=== PATIENT | female | born 1985 | race Caucasian/White ===

== ENCOUNTER → 2020-05-19 13:00 | Observation (INO) ==
[~2020-05-19 13:00] MED LIST: Aspirin Enteric Coated 81 MG Tablet PO SCH; Prenatal Vit/FA 1 EACH TABLET PO SCH
== END | disposition home or self-care (01) ==
LOC: 1NENULAB
PROVIDERS: ADMIT Obstetrics & Gynecology; ATTEND Obstetrics & Gynecology

== ENCOUNTER 2020-06-25 11:07 | Inpatient (IN) ==
[2020-06-25] MEDS ORDERED: Naloxone 0.4 MG/ML INJ IVP PRN (11:21)
[2020-06-25] MEDS ORDERED: Famotidine 20 MG/2 ML VIAL IVP PRN (11:21)
[2020-06-25] MEDS ORDERED: Lidocaine 1% 20 ML MDV INFILT PRN (11:21)
[2020-06-25] MEDS ORDERED: Ondansetron 4 MG/2 ML VIAL IVP PRN (11:21)
[2020-06-25] MEDS ORDERED: *HR* FentaNYL (PF) 100 MCG/2 ML VIAL IVP PRN (11:21)
[2020-06-25] MEDS ORDERED: Metoclopramide 10 MG/2 ML VIAL IVP PRN (11:21)
[2020-06-25] MEDS ORDERED: Ringers Solution, Lactated 1,000 ML ONE (11:56)
[2020-06-25 12:04] LABS: Basophils % 0.1 %; Eosinophils # 0.1 K/mcL (0.0-0.6); Eosinophils % 0.7 %; Hematocrit 36.8 % (35.3-44.9); Hemoglobin 11.8 g/dL (11.5-15.4); Immature Granulocytes % 0.3 % (0-4); Lymphocytes # 1.7 K/mcL (0.6-4.6); Lymphocytes % 17.5 %; Mean Corpuscular HGB Conc 32.1 g/dL (31.6-35.5); Mean Corpuscular Hemoglobin 29.3 pg (28.0-33.3); Mean Corpuscular Volume 91.3 fL (83.0-100.0); Mean Platelet Volume 10.8 fL (9.4-12.4); Monocytes # 0.5 K/mcL (0.0-1.3); Monocytes % 5.2 %; Neutrophils # 7.6 K/mcL (1.6-8.9); Platelet Count 188 K/mcL (140-400); Red Blood Count 4.03 M/mcL (3.82-4.97); Segmented Neutrophils % 76.2 %; White Blood Count 9.9 K/mcL (4.3-11.1)
[2020-06-25] MEDS ORDERED: Penicillin G Potassium 5,000,000 UNIT in 0.9 % Sodium Chloride Mini Bag 100 ML IVPB ONE (12:07)
[2020-06-25] MEDS ORDERED: Oxytocin 20 units/ LR 1000 mL 20 UNIT/1,000 ML BAG IVC SCH (12:15)
[2020-06-25] MEDS: Ringers Solution, Lactated 1,000 ML IVC SCH ×3 (12:30→23:37)
[2020-06-25 13:05] LABS: Amphetamine Screen,Urine Negative ng/mL (Cutoff=1000); Barbiturate Screen,Urine Negative ng/mL (Cutoff=200); Benzodiazepines Screen,Urine Negative ng/mL (Cutoff=200); Cannabinoid Screen,Urine Negative ng/mL (Cutoff = 50); Cocaine Screen,Urine Negative ng/mL (Cutoff= 300); Opiate Screen,Urine Negative ng/mL (Cutoff=300); Phencyclidine Screen,Urine Negative ng/mL (Cutoff=25)
[2020-06-25] MEDS: Penicillin G Potassium 2,500,000 UNIT in 0.9 % Sodium Chloride 100 ML IVPB SCH ×2 (16:27→20:27)
[2020-06-25 18:24] LABS: Creatinine,Urine 62 mg/dL; Protein/Creatinine Ratio,Urine 0.18 mg/mg (0.00-0.20)
[2020-06-25 19:01] LABS: Alanine Aminotransferase 12 Units/L (7-52); Aspartate Amino Transferase 14 Units/L (13-39); BUN/Creatinine Ratio 18 (6-26); Blood Urea Nitrogen 9 mg/dL (6-20); Lactate Dehydrogenase 136 Units/L (140-271); Uric Acid 6.2 mg/dL (2.3-7.6); eGFR For African Americans > 60 (> 60); eGFR For Non-African Americans > 60 (> 60)
[2020-06-25] MEDS ORDERED: EPHEDrine 50 MG/ML VIAL IVP PRN (21:36)
[2020-06-25] MEDS ORDERED: Epidural Premix (fent/bupiv) 110 ML EP SCH (21:45)
[2020-06-26] MEDS: Penicillin G Potassium 2,500,000 UNIT in 0.9 % Sodium Chloride 100 ML IVPB SCH (00:19)
[2020-06-26] MEDS ORDERED: *HR* FentaNYL (PF) 100 MCG/2 ML VIAL ONE (01:29)
[2020-06-26] MEDS ORDERED: Bupivacaine-MPF 0.25% 10 ML VIAL ONE (01:30)
[2020-06-26] MEDS ORDERED: Measles/Mumps/Rubella Vacc 0.5 ML VIAL SQ PRN (04:05)
[2020-06-26] MEDS ORDERED: Rho Immune Globulin 1,500 UNIT SYRINGE IM PRN (04:05)
[2020-06-26] MEDS ORDERED: Oxytocin 20 units/ LR 1000 mL 20 UNIT/1,000 ML BAG IVC ONE (04:05)
[2020-06-26] MEDS ORDERED: Oxytocin 20 units/ LR 1000 mL 20 UNIT/1,000 ML BAG IVC SCH (04:05)
[2020-06-26] MEDS: NIFEdipine XL (24 HR) 30 MG TAB.ER.24 PO SCH (07:53)
[2020-06-26] MEDS: Prenatal Vit/FA 1 EACH TABLET PO SCH (07:53)
[2020-06-26] MEDS: Ibuprofen 600 MG TABLET PO PRN ×2 (07:57→17:13)
[2020-06-26] MEDS ORDERED: NIFEdipine 10 MG CAPSULE PO SCH (09:00)
[2020-06-26] MEDS: Acetaminophen 325 MG TABLET PO PRN ×2 (10:57→19:54)
[2020-06-26] MEDS ORDERED: Benzocaine/Menthol 56 GM AEROSOL SPRAY TP PRN (17:18)
[2020-06-27] MEDS: Prenatal Vit/FA 1 EACH TABLET PO SCH (07:33)
[2020-06-27] MEDS: Acetaminophen 325 MG TABLET PO PRN (07:34)
[2020-06-27] MEDS: Ibuprofen 600 MG TABLET PO PRN (07:34)
[2020-06-27] MEDS: NIFEdipine XL (24 HR) 30 MG TAB.ER.24 PO SCH (07:34)
[2020-06-27 08:18] VITALS: BP 122/87
[2020-06-27 08:57] LABS: Basophils % 0.1 %; Eosinophils # 0.1 K/mcL (0.0-0.6); Hemoglobin 10.8 g/dL (11.5-15.4); Immature Granulocytes % 0.3 % (0-4); Lymphocytes % 23.1 %; Mean Corpuscular HGB Conc 31.8 g/dL (31.6-35.5); Mean Corpuscular Hemoglobin 30.2 pg (28.0-33.3); Mean Platelet Volume 10.8 fL (9.4-12.4); Monocytes # 0.5 K/mcL (0.0-1.3); Monocytes % 5.1 %; Neutrophils # 6.1 K/mcL (1.6-8.9); Platelet Count 157 K/mcL (140-400); Red Blood Count 3.58 M/mcL (3.82-4.97); Red Cell Distribution Width 13.3 % (11.5-14.5); Segmented Neutrophils % 70.4 %; White Blood Count 8.7 K/mcL (4.3-11.1)
== END 2020-06-27 12:19 | disposition home or self-care (01) | DRG 805 ==
LOC: 1NENULAB 11:07 → 1NENUOBS 06-26 04:49
PROVIDERS: ADMIT Obstetrics & Gynecology; ATTEND Obstetrics & Gynecology